=== PATIENT | female | born 1945 | race Caucasian/White ===

== ENCOUNTER 2023-11-25 21:50 | Emergency (ER) | payer BC ==
[~2023-11-25] VITALS: Ht 154.9 cm; Wt 56.4 kg
[2023-11-25 21:53] VITALS: TEMP 97.7
[2023-11-25 23:07] LABS: BASOPHILS % (AUTO) 0.3 % (0-1); EOSINOPHILS # (AUTO) 0.1 X10'3 (0-0.9); EOSINOPHILS % (AUTO) 1.1 % (0-6); HEMATOCRIT 43.4 % (35.0-45.0); HEMOGLOBIN 14.9 g/dl (12.0-16.0); LYMPHOCYTES # (AUTO) 1.4 X10'3 (1.1-4.8); LYMPHOCYTES % (AUTO) 22.7 % (21-51); MEAN CORPUSCULAR HEMOGLOBIN 34.3 PG (27.0-31.0); MEAN CORPUSCULAR HGB CONC 34.3 g/dL (33.0-36.5); MEAN PLATELET VOLUME 6.9 FL (7.4-10.4); MONOCYTES # (AUTO) 0.4 X10'3 (0-0.9); MONOCYTES % (AUTO) 6.2 % (2-12); NEUTROPHILS # (AUTO) 4.3 X10'3 (1.8-7.7); NEUTROPHILS % (AUTO) 69.7 % (42-75); PLATELET COUNT 317 X10'3 (140-440); RED BLOOD COUNT 4.34 X10'6 (4.20-5.60); WHITE BLOOD COUNT 6.2 X10'3 (4.5-11.0)
[2023-11-25 23:15] LABS: ALBUMIN 3.7 G/DL (3.4-5.0); ANION GAP 10 (8-16); BLOOD UREA NITROGEN 9 MG/DL (7-18); CALCIUM 9.2 MG/DL (8.5-10.1); CHLORIDE 105 MMOL/L (99-107); CREATININE 0.69 MG/DL (0.40-0.90); ETHANOL 294 MG/DL (<10); GLUCOSE 116 MG/DL (70-104); POTASSIUM 3.7 MMOL/L (3.5-5.1); PRO BRAIN NATRIURETIC PEPTIDE 125 PG/ML (0-450); SODIUM 145 MMOL/L (135-145); TOTAL CARBON DIOXIDE 30.2 MMOL/L (24-32); eCRCL 50 ML/MIN; eGFR 82 ML/MIN
[2023-11-25] MEDS ORDERED: niCARDipine-NS 40mg/200ml IVPB 200 ML IV PRN (23:25)
[2023-11-26 00:09] VITALS: BP 135/51; PULSE 68; RESP 15; O2SAT 96
== END 2023-11-26 00:15 | disposition short-term general hospital (02) ==
LOC: ER 21:50
DX: S01.01XA Laceration without foreign body of scalp, initial encounter (principal); I60.9 Nontraumatic subarachnoid hemorrhage, unspecified; R55 Syncope and collapse; W18.39XA Other fall on same level, initial encounter; Y93.89 Activity, other specified; Y92.89 Other specified places as the place of occurrence of the external cause; Y99.8 Other external cause status; Z91.040 Latex allergy status
CPT/HCPCS: 12002; 70450; 71045; 72125; 80048; 80320; 83880; 84484; 85025; 93005; 99284; 99285

== ENCOUNTER 2023-12-02 12:21 | Emergency (ER) | payer BC ==
[~2023-12-02] VITALS: Ht 157.5 cm; Wt 57.6 kg
[2023-12-02 12:26] VITALS: BP 165/53; PULSE 62; RESP 16; TEMP 98; O2SAT 98
== END 2023-12-02 13:48 | disposition home or self-care (01) ==
LOC: ER 12:22
DX: S01.91XD Laceration without foreign body of unspecified part of head, subsequent encounter (principal); X58.XXXD Exposure to other specified factors, subsequent encounter; Z91.040 Latex allergy status
CPT/HCPCS: 99281